=== PATIENT | female | born 1960 | race Two or more races ===

== ENCOUNTER 2024-03-03 12:59 | Emergency (ER) | payer OTHER ==
[~2024-03-03] VITALS: Ht 165.1 cm; Wt 98.0 kg
[~2024-03-03 12:59] MED LIST: ASPIR 8181 MG PO; VASOTEC5 MG PO; VYTORIN 10-40 M1 TAB PO
[2024-03-03] MEDS ORDERED: COZAAR100 MG PO (13:07)
[2024-03-03] MEDS ORDERED: ASPIRIN 325 MG TABLET.EC PO STA (13:20)
[2024-03-03] MEDS ORDERED: CLONIDINE HCL 0.1 MG TABLET PO ONE ×2 (13:45→14:01)
[2024-03-03] MEDS ORDERED: ASPIRIN 325 MG TABLET.EC PO ONE (14:01)
[2024-03-03 14:36] LABS: HEMATOCRIT 35.2 % (36.0-45.00); HEMOGLOBIN 11.6 g/dL (12.0-15.00); MEAN CELL VOLUME 88.7 fL (80.00-100.00); MEAN CORPUSCULAR HEMOGLOBIN 29.1 pg (27.00-32.0); MEAN CORPUSCULAR HGB CONC 32.8 g/dl (32.0-36.0); PLATELET COUNT 202 K/uL (150-450); RED BLOOD COUNT 3.97 M/uL (4.00-6.00); RED CELL DISTRIBUTION WIDTH 14.3 % (11.5-14.5)
[2024-03-03 15:01] LABS: CALCIUM 9.6 mg/dL (8.5-10.1); CREATININE SERUM 0.72 mg/dL (0.55-1.02); GFR 81.55; POTASSIUM 3.59 mEq/L (3.5-5.1)
[2024-03-03 15:08] VITALS: BP 153/71; O2SAT 100
[2024-03-03 15:20] LABS: INR 1.01; PARTIAL THROMBOPLASTIN TIME 26.4 SECONDS (22.0-34.0)
== END 2024-03-03 18:54 | disposition home or self-care (01) ==
LOC: ER 13:01
PROVIDERS: Emergency Medicine
DX: K21.9 Gastro-esophageal reflux disease without esophagitis (principal); R07.89 Other chest pain; Z88.0 Allergy status to penicillin; Z88.8 Allergy status to other drugs, medicaments and biological substances; I10 Essential (primary) hypertension